=== PATIENT | male | born 1970 | race Hispanic/Latino ===

== ENCOUNTER 2022-05-25 15:59 | Emergency (ER) | payer BC ==
[~2022-05-25] VITALS: Ht 185.4 cm; Wt 108.9 kg
[2022-05-25] MEDS ORDERED: ONDANSETRON HCL INJ 2MG/ML 2ML 2 MG/ML VIAL IV STA (16:18)
[2022-05-25] MEDS ORDERED: HYDRALAZINE HCL 20 MG/ML VIAL IV STA (16:40)
[2022-05-25] MEDS ORDERED: ONDANSETRON HCL INJ 2MG/ML 2ML 2 MG/ML VIAL ONE (16:47)
[2022-05-25] MEDS ORDERED: HYDRALAZINE HCL 20 MG/ML VIAL ONE (17:08)
[2022-05-25] MEDS ORDERED: DEXAMETHASONE SOD PHOS INJ 4 MG/ML SDV IV ONE (17:30)
[2022-05-25] MEDS ORDERED: DEXAMETHASONE SOD PHOS INJ 4 MG/ML SDV ONE (17:58)
== END 2022-05-25 19:15 | disposition other institution (70) ==
LOC: FSED 16:06
DX: G93.6 Cerebral edema (principal); G93.9 Disorder of brain, unspecified; R11.0 Nausea; I10 Essential (primary) hypertension; R73.9 Hyperglycemia, unspecified; E78.5 Hyperlipidemia, unspecified; I48.20 Chronic atrial fibrillation, unspecified; D68.9 Coagulation defect, unspecified; Z79.01 Long term (current) use of anticoagulants; F17.210 Nicotine dependence, cigarettes, uncomplicated
CPT/HCPCS: 70450; 71046; 80053; 82553; 84484; 85025; 93005; 99284; J0360; J1100; J2405